=== PATIENT | male | born 1955 | race Two or more races ===

== ENCOUNTER 2019-02-09 11:48 | Inpatient (IN) | payer MEDICAID ==
[~2019-02-09] VITALS: Ht 177.8 cm; Wt 63.1 kg
[2019-02-09] MEDS ORDERED: SODIUM CHLORIDE 0.9% 1000ML BAG (SEPSIS BOLUS) IV ONE (13:15)
[2019-02-09 13:40] LABS: EOSINOPHILS % 1.2 % (0.0-5.0); HEMATOCRIT. 42.6 % (42.0-52.0); HEMOGLOBIN. 14.5 g/dL (14.0-18.0); LYMPHOCYTES % 20.3 % (20.0-50.0); MEAN CORPUSCULAR HEMOGLOBIN 29.7 pg (28.0-32.0); MEAN CORPUSCULAR VOLUME 86.9 fL (80.0-94.0); MEAN PLATELET VOLUME 7.6 fl (7.4-10.4); MONOCYTES % 8.2 % (2.0-8.0); NEUTROPHILS % 69.3 % (40.0-76.0); PLATELET 271 x1000/uL (130-400); RED CELL DISTRIBUTION WIDTH 14.8 % (11.6-14.6)
[2019-02-09 13:46] LABS: CHLORIDE 101 mEq/L (98-107)
[2019-02-09 13:47] LABS: PROTHROMBIN TIME 10.6 sec (9.6-11.0)
[2019-02-09] MEDS ORDERED: VANCOMYCIN 1 G PREMIX 200 ML IV ONE (15:45)
[2019-02-09] MEDS ORDERED: PIPERACILLIN/TAZ 3.375G PREMIX 50 ML IV ONE (15:45)
[2019-02-09] MEDS ORDERED: LORAZEPAM 0.5MG TABLET PO PRN (20:15)
[2019-02-09] MEDS ORDERED: IPRATROPIUM/ALBUTEROL 0.5-3(2.5)MG/3ML NEB INH PRN (20:15)
[2019-02-09] MEDS ORDERED: LACTATED RINGERS 1,000 ML IV SCH (20:15)
[2019-02-09] MEDS ORDERED: DOCUSATE SODIUM 100MG CAPSULE PO PRN (20:15)
[2019-02-09] MEDS ORDERED: CLONIDINE 0.1MG TABLET PO PRN (20:15)
[2019-02-09] MEDS ORDERED: ACETAMINOPHEN 325MG TABLET PO PRN (20:15)
[2019-02-09] MEDS ORDERED: ONDANSETRON HCL 4MG/2ML INJ IV PRN (20:15)
[2019-02-10] VITALS (12 sets, daily range): BP systolic 66–125; BP diastolic 41–72
[2019-02-10] MEDS ORDERED: ATOR40TA70 PO (00:14)
[2019-02-10] MEDS ORDERED: CLOP75TA4 PO (00:14)
[2019-02-10] MEDS ORDERED: ASPI-1393 PO (00:14)
[2019-02-10] MEDS ORDERED: METF-414 PO (00:15)
[2019-02-10] MEDS ORDERED: AMLO5TAB88 PO (00:15)
[2019-02-10] MEDS ORDERED: DEXTROSE 50% WATER 50ML SYRINGE IV PRN (00:15)
[2019-02-10] MEDS ORDERED: LISI-604 PO (00:16)
[2019-02-10] MEDS ORDERED: CARV12.545 PO (00:16)
[2019-02-10] MEDS: SODIUM CHLORIDE 0.9% 1,000 ML IV SCH ×2 (02:00→14:02)
[2019-02-10 06:21] LABS: HEMATOCRIT. 40.3 % (42.0-52.0); HEMOGLOBIN. 13.6 g/dL (14.0-18.0); MEAN CORPUSCULAR HEMOGLOBIN 29.3 pg (28.0-32.0); MEAN CORPUSCULAR VOLUME 86.9 fL (80.0-94.0); MEAN PLATELET VOLUME 8.1 fl (7.4-10.4); PLATELET 216 x1000/uL (130-400); RED BLOOD CELL COUNT 4.64 mill/uL (4.7-6.1); RED CELL DISTRIBUTION WIDTH 14.6 % (11.6-14.6)
[2019-02-10 06:25] LABS: CHLORIDE 105 mEq/L (98-107)
[2019-02-10 06:32] LABS: LDL CHOLESTEROL 64 mg/dL (5-100)
[2019-02-10 06:34] LABS: HDL CHOLESTEROL 45 mg/dL (40-59)
[2019-02-10 06:45] LABS: CARCINO EMBRYONIC ANTIGEN 1.3 ng/ml
[2019-02-10 06:56] LABS: HEPATITIS B SURFACE ANTIGEN NEGATIVE
[2019-02-10 07:26] LABS: HEPATITIS A AB IGM NEGATIVE (NEGATIVE)
[2019-02-10] MEDS: INSULIN LISPRO 100 UNITS/ML SUBCUT SCH ×2 (08:00→13:00)
[2019-02-10] MEDS ORDERED: METFORMIN HCL 500MG TABLET PO SCH (08:00)
[2019-02-10] MEDS: CLOPIDOGREL 75MG TABLET PO SCH (08:12)
[2019-02-10] MEDS: ASPIRIN 81MG EC TABLET PO SCH (08:12)
[2019-02-10] MEDS: BLOOD SUGAR DIAGNOSTIC STRIP TEST SCH ×4 (08:13→21:33)
[2019-02-10] MEDS ORDERED: LISINOPRIL 20MG TABLET PO SCH (09:00)
[2019-02-10] MEDS ORDERED: CARVEDILOL 12.5MG TABLET PO SCH (09:00)
[2019-02-10] MEDS ORDERED: AMLODIPINE 5MG TABLET PO SCH (09:00)
[2019-02-10] MEDS: ENOXAPARIN 40MG/0.4ML SYR SUBCUT SCH (10:26)
[2019-02-10] MEDS ORDERED: VANCOMYCIN 750 MG PREMIX 150 ML IV SCH (11:00)
[2019-02-10] MEDS: PIPERACILLIN/TAZOBACTAM 3.375 G in DEXT 5% WATER 100 ML IV SCH ×2 (14:01→18:27)
[2019-02-10] MEDS ORDERED: LORAZEPAM 2MG/ML CPJ IV PRN (15:45)
[2019-02-10] MEDS ORDERED: HALOPERIDOL LACTATE 5MG/ML VIAL IM PRN (15:45)
[2019-02-10] MEDS: LACTATED RINGERS 1,000 ML IV SCH ×3 (16:31→18:07)
[2019-02-10 17:55] LABS: PLATELET ESTIMATE NORMAL
[2019-02-10] MEDS: ATORVASTATIN CALCIUM 40MG TABLET PO SCH (21:00)
[2019-02-10] MEDS: VANCOMYCIN 750 MG PREMIX 150 ML IV SCH (21:33)
[2019-02-11] VITALS (12 sets, daily range): BP systolic 104–136; BP diastolic 57–92
[2019-02-11] MEDS: PIPERACILLIN/TAZOBACTAM 3.375 G in DEXT 5% WATER 100 ML IV SCH ×2 (00:20→05:29)
[2019-02-11] MEDS: SODIUM CHLORIDE 0.9% 1,000 ML IV SCH ×2 (03:16→17:28)
[2019-02-11 04:38] LABS: BASOPHILS % 0.3 % (0.0-2.0); EOSINOPHILS % 1.1 % (0.0-5.0); HEMATOCRIT. 34.4 % (42.0-52.0); HEMOGLOBIN. 11.5 g/dL (14.0-18.0); LYMPHOCYTES % 9.9 % (20.0-50.0); MEAN CORPUSCULAR HEMOGLOBIN 29.5 pg (28.0-32.0); MEAN CORPUSCULAR VOLUME 88.7 fL (80.0-94.0); MEAN PLATELET VOLUME 7.9 fl (7.4-10.4); MONOCYTES % 8.8 % (2.0-8.0); NEUTROPHILS % 79.9 % (40.0-76.0); PLATELET 172 x1000/uL (130-400); RED BLOOD CELL COUNT 3.88 mill/uL (4.7-6.1); RED CELL DISTRIBUTION WIDTH 14.8 % (11.6-14.6)
[2019-02-11 04:39] LABS: CHLORIDE 107 mEq/L (98-107)
[2019-02-11] MEDS: VANCOMYCIN 750 MG PREMIX 150 ML IV SCH (05:29)
[2019-02-11] MEDS: BLOOD SUGAR DIAGNOSTIC STRIP TEST SCH ×4 (08:11→20:52)
[2019-02-11] MEDS: ASPIRIN 81MG EC TABLET PO SCH (08:12)
[2019-02-11] MEDS: CLOPIDOGREL 75MG TABLET PO SCH (08:12)
[2019-02-11] MEDS: ENOXAPARIN 40MG/0.4ML SYR SUBCUT SCH (08:57)
[2019-02-11] MEDS ORDERED: POTASSIUM CHLORIDE INJ 40 MEQ in DEXT 5% WATER 480 ML IV NR ×2 (13:00→15:30)
[2019-02-11 13:07] LABS: CA 19-9 13 U/mL (0-35); HIV SCREEN 4G Non Reactive (Non Reactive)
[2019-02-11] MEDS ORDERED: IOHEXOL-300 100 ML BOTTLE ONE (13:27)
[2019-02-11] MEDS: HYDROCODONE/ACETAMINOPHEN 5/325MG TABLET PO PRN (14:21)
[2019-02-11] MEDS: VANCOMYCIN 1 G PREMIX 200 ML IV SCH (17:31)
[2019-02-11] MEDS: ATORVASTATIN CALCIUM 40MG TABLET PO SCH (20:51)
[2019-02-12] VITALS (12 sets, daily range): BP systolic 113–170; BP diastolic 63–80
[2019-02-12] MEDS: PIPERACILLIN/TAZOBACTAM 3.375 G in DEXT 5% WATER 100 ML IV SCH ×4 (00:19→18:36)
[2019-02-12] MEDS: SODIUM CHLORIDE 0.9% 1,000 ML IV SCH ×2 (04:20→16:59)
[2019-02-12] MEDS: VANCOMYCIN 1 G PREMIX 200 ML IV SCH ×2 (06:25→17:05)
[2019-02-12] MEDS: BLOOD SUGAR DIAGNOSTIC STRIP TEST SCH ×4 (06:39→21:27)
[2019-02-12] MEDS: ASPIRIN 81MG EC TABLET PO SCH (09:00)
[2019-02-12] MEDS: CLOPIDOGREL 75MG TABLET PO SCH (09:00)
[2019-02-12] MEDS: ENOXAPARIN 40MG/0.4ML SYR SUBCUT SCH (09:00)
[2019-02-12 16:59] LABS: BASOPHILS % 0.8 % (0.0-2.0); EOSINOPHILS % 1.8 % (0.0-5.0); HEMATOCRIT. 35.1 % (42.0-52.0); HEMOGLOBIN. 12.1 g/dL (14.0-18.0); LYMPHOCYTES % 19.6 % (20.0-50.0); MEAN CORPUSCULAR HEMOGLOBIN 29.6 pg (28.0-32.0); MEAN PLATELET VOLUME 7.3 fl (7.4-10.4); MONOCYTES % 8.7 % (2.0-8.0); NEUTROPHILS % 69.1 % (40.0-76.0); PLATELET 200 x1000/uL (130-400); RED BLOOD CELL COUNT 4.08 mill/uL (4.7-6.1); RED CELL DISTRIBUTION WIDTH 14.8 % (11.6-14.6)
[2019-02-12 17:15] LABS: CHLORIDE 102 mEq/L (98-107)
[2019-02-12] MEDS: ATORVASTATIN CALCIUM 40MG TABLET PO SCH (21:00)
[2019-02-12] MEDS: DEXT 5%/0.9% NACL 1,000 ML IV SCH (21:26)
[2019-02-12] MEDS ORDERED: KCL 20MEQ/100ML PREMIX 100 ML IV NR (22:00)
[2019-02-13] VITALS (12 sets, daily range): BP systolic 116–153; BP diastolic 67–97
[2019-02-13] MEDS: PIPERACILLIN/TAZOBACTAM 3.375 G in DEXT 5% WATER 100 ML IV SCH ×4 (00:17→18:16)
[2019-02-13] MEDS: VANCOMYCIN 1 G PREMIX 200 ML IV SCH (05:07)
[2019-02-13 05:57] LABS: CHLORIDE 103 mEq/L (98-107)
[2019-02-13 06:08] LABS: VANCOMYCIN TROUGH 22.7 ug/mL (5.0-10.0)
[2019-02-13 06:15] LABS: BASOPHILS % 0.5 % (0.0-2.0); EOSINOPHILS % 1.2 % (0.0-5.0); HEMATOCRIT. 36.5 % (42.0-52.0); HEMOGLOBIN. 12.8 g/dL (14.0-18.0); LYMPHOCYTES % 13.1 % (20.0-50.0); MEAN CORPUSCULAR HEMOGLOBIN 29.9 pg (28.0-32.0); MEAN CORPUSCULAR VOLUME 85.3 fL (80.0-94.0); MEAN PLATELET VOLUME 8.1 fl (7.4-10.4); MONOCYTES % 8.6 % (2.0-8.0); NEUTROPHILS % 76.6 % (40.0-76.0); PLATELET 206 x1000/uL (130-400); RED BLOOD CELL COUNT 4.29 mill/uL (4.7-6.1); RED CELL DISTRIBUTION WIDTH 14.8 % (11.6-14.6)
[2019-02-13] MEDS: BLOOD SUGAR DIAGNOSTIC STRIP TEST SCH ×4 (07:30→21:00)
[2019-02-13] MEDS: ASPIRIN 81MG EC TABLET PO SCH (09:00)
[2019-02-13] MEDS: CLOPIDOGREL 75MG TABLET PO SCH (09:00)
[2019-02-13] MEDS: ENOXAPARIN 40MG/0.4ML SYR SUBCUT SCH (09:00)
[2019-02-13] MEDS: DEXT 5%/0.9% NACL 1,000 ML IV SCH ×2 (09:26→22:01)
[2019-02-13] MEDS ORDERED: BACTERIOSTATIC SODIUM CHLORIDE 0.9% 30ML VIAL IJ ONE (09:28)
[2019-02-13] MEDS ORDERED: POTASSIUM CHLORIDE INJ 40 MEQ in DEXT 5% WATER 250 ML IV ONE (12:30)
[2019-02-13] MEDS ORDERED: FENTANYL CITRATE/PF 50MCG/ML 2ML VIAL ONE (13:12)
[2019-02-13] MEDS ORDERED: MIDAZOLAM HCL 5 MG/5 ML VIAL IV PRN (13:12)
[2019-02-13] MEDS ORDERED: FENTANYL CITRATE/PF 50MCG/ML 2ML VIAL IV NR (13:12)
[2019-02-13] MEDS ORDERED: MIDAZOLAM HCL 5 MG/5 ML VIAL ONE ×2 (13:12→13:13)
[2019-02-13] MEDS ORDERED: LIDOCAINE HCL 1% 20ML VIAL (Pyxis) INJ ONE (14:45)
[2019-02-13] MEDS ORDERED: LIDOCAINE HCL 1% 20ML VIAL (Pyxis) INJ INFIL NR (14:45)
[2019-02-13] MEDS ORDERED: VANCOMYCIN 750 MG PREMIX 150 ML IV SCH (18:00)
[2019-02-13] MEDS: ATORVASTATIN CALCIUM 40MG TABLET PO SCH (22:00)
[2019-02-13] MEDS: HYDROCODONE/ACETAMINOPHEN 5/325MG TABLET PO PRN (22:01)
[2019-02-14] VITALS (12 sets, daily range): BP systolic 121–143; BP diastolic 65–93
[2019-02-14] MEDS: PIPERACILLIN/TAZOBACTAM 3.375 G in DEXT 5% WATER 100 ML IV SCH ×5 (00:43→23:37)
[2019-02-14 06:06] LABS: CHLORIDE 105 mEq/L (98-107)
[2019-02-14 06:15] LABS: BASOPHILS % 0.7 % (0.0-2.0); EOSINOPHILS % 1.4 % (0.0-5.0); HEMATOCRIT. 38.4 % (42.0-52.0); HEMOGLOBIN. 13.2 g/dL (14.0-18.0); LYMPHOCYTES % 19.6 % (20.0-50.0); MEAN CORPUSCULAR HEMOGLOBIN 29.6 pg (28.0-32.0); MEAN CORPUSCULAR VOLUME 86.2 fL (80.0-94.0); MEAN PLATELET VOLUME 7.8 fl (7.4-10.4); MONOCYTES % 9.3 % (2.0-8.0); PLATELET 207 x1000/uL (130-400); RED BLOOD CELL COUNT 4.45 mill/uL (4.7-6.1); RED CELL DISTRIBUTION WIDTH 14.8 % (11.6-14.6)
[2019-02-14] MEDS: BLOOD SUGAR DIAGNOSTIC STRIP TEST SCH ×4 (06:29→23:37)
[2019-02-14] MEDS: ASPIRIN 81MG EC TABLET PO SCH (08:50)
[2019-02-14] MEDS: CLOPIDOGREL 75MG TABLET PO SCH (08:50)
[2019-02-14] MEDS: ENOXAPARIN 40MG/0.4ML SYR SUBCUT SCH (08:50)
[2019-02-14] MEDS: HYDROCODONE/ACETAMINOPHEN 5/325MG TABLET PO PRN (08:52)
[2019-02-14] MEDS ORDERED: POTASSIUM CHLORIDE 20MEQ/PACKET PO NR (11:30)
[2019-02-14] MEDS ORDERED: POTASSIUM CHLORIDE INJ 40 MEQ in DEXT 5% WATER 250 ML IV NR (12:00)
[2019-02-14] MEDS: ATORVASTATIN CALCIUM 40MG TABLET PO SCH (21:36)
[2019-02-14] MEDS: DEXT 5%/0.9% NACL 1,000 ML IV SCH (23:00)
[2019-02-15] VITALS (9 sets, daily range): BP systolic 127–163; BP diastolic 50–102
[2019-02-15] MEDS: BLOOD SUGAR DIAGNOSTIC STRIP TEST SCH ×2 (06:07→12:13)
[2019-02-15] MEDS: PIPERACILLIN/TAZOBACTAM 3.375 G in DEXT 5% WATER 100 ML IV SCH ×2 (06:07→12:55)
[2019-02-15 06:53] LABS: EOSINOPHILS % 2.1 % (0.0-5.0); HEMATOCRIT. 34.9 % (42.0-52.0); HEMOGLOBIN. 12.3 g/dL (14.0-18.0); LYMPHOCYTES % 17.6 % (20.0-50.0); MEAN CORPUSCULAR VOLUME 85.6 fL (80.0-94.0); MEAN PLATELET VOLUME 7.8 fl (7.4-10.4); MONOCYTES % 9.4 % (2.0-8.0); NEUTROPHILS % 69.9 % (40.0-76.0); PLATELET 208 x1000/uL (130-400); RED BLOOD CELL COUNT 4.08 mill/uL (4.7-6.1); RED CELL DISTRIBUTION WIDTH 15.2 % (11.6-14.6)
[2019-02-15 07:05] LABS: CHLORIDE 107 mEq/L (98-107)
[2019-02-15] MEDS: CLOPIDOGREL 75MG TABLET PO SCH (08:22)
[2019-02-15] MEDS: ENOXAPARIN 40MG/0.4ML SYR SUBCUT SCH (08:22)
[2019-02-15] MEDS: ASPIRIN 81MG EC TABLET PO SCH (08:22)
[2019-02-15] MEDS ORDERED: POTASSIUM CHLORIDE 20MEQ/PACKET PO NR (11:30)
[2019-02-15] MEDS: DEXT 5%/0.9% NACL 1,000 ML IV SCH (11:30)
== END 2019-02-15 16:56 | DRG 720 ==
LOC: ER 11:48 → 5EST 15:38 → ENRESERV 19:16 → 5EST 02-10 20:09
PROVIDERS: ADMIT Internal Medicine; ATTEND Internal Medicine
PROC: 0DH63UZ Insertion of Feeding Device into Stomach, Percutaneous Approach (ICD-10-PCS; principal; 2019-02-13)
DX: A41.9 Sepsis, unspecified organism (principal); L89.150 Pressure ulcer of sacral region, unstageable; E46 Unspecified protein-calorie malnutrition; K29.71 Gastritis, unspecified, with bleeding; I69.354 Hemiplegia and hemiparesis following cerebral infarction affecting left non-dominant side; F01.50 Vascular dementia, unspecified severity, without behavioral disturbance, psychotic disturbance, mood disturbance, and anxiety; E78.5 Hyperlipidemia, unspecified; I10 Essential (primary) hypertension; E87.6 Hypokalemia; E11.9 Type 2 diabetes mellitus without complications; F17.210 Nicotine dependence, cigarettes, uncomplicated; K56.7 Ileus, unspecified; R62.7 Adult failure to thrive; Z68.1 Body mass index [BMI] 19.9 or less, adult; Z79.84 Long term (current) use of oral hypoglycemic drugs; Z78.1 Physical restraint status
CPT/HCPCS: 36415; 71045; 74178; 80048; 80061; 80202; 82378; 82962; 83036; 83605; 83880; 84134; 84145; 84443; 84484; 86301; 86705; 86709; 86803; 87340; 87389; 92610; 93005; 96374; 97162; 97166; 99285; J1650; J2060; J2250; J2543; J3010; J3370; J3480; J3490; J7030; J7042; J7060; Q9967